=== PATIENT | male | born 1950 ===

== ENCOUNTER 2018-01-18 06:08 | Day surgery (SDC) | payer MEDICARE, MEDICAID ==
[2018-01-17 14:51] VITALS: BMI 25.6
--- NOTE | 2018-01-18 07:01 | CP.SDSHP ---
Same Day Surgery H & P - History Proposed Procedure: R foot Tenex of plantar fascia, PRP Pre-Op Diagnosis: R foot plantar fasciitis - Previous Medical/Surgical History Cardiac: Hypertension Pulmonary: Asthma Neuro: Other (Sciatica) Pain: 4.Moderate Pain (R medial calcaneus) Previous Surgical History: Appendectomy - Allergies Allergies: Allergies NAUSEA SUPPOSITORY Allergy (Severe, Uncoded 10/18/17 13:19) TWITCHING PT UNSURE OF THE NAME PHENERGAN OR COMPAZINE - Current Medications Current Medications: See chart - Physical Exam General Appearance: AAOx3, NAD Vital Signs: Vital Signs 01/18/18 01/18/18 06:45 06:51 Temperature 97.4 F L Pulse Rate 50 L 46 L Respiratory 18 Rate Blood Pressure 148/76 O2 Sat by Pulse 99 Oximetry Mental Status: Alert & Oriented x3 Neuro: WNL Heart: WNL Lungs: WNL GI: WNL - {Optional Preform as Required} Breast: WNL Abdomen: WNL Integument: WNL : WNL Ortho: Other (Pain on palpation medial calcaneal tubercle; muscle strength 5/5 for all dorsiflexors, plantarflexors, inverters, and everters) - Impression Impression: Pt was seen and examined in [facility]. Pt NPO status was confirmed. All Pre-op testing and clearance was in the chart. Pt has exhausted all conservative treatment at this time and is opting for surgical intervention. Pt was explained procedure and post-operative course. All pt's questions were answered to satisfaction. No guarantees were made. Pt understands all risks, benefits and complications of procedure. Pt will follow-up with Dr. Stacy in office Pt. Evaluated Today:Candidate for Anesthesia & Procedure: Yes - Date & Time Date: 01/18/18 Time: 07:01 Short Stay Discharge - Short Stay Discharge Admitting Diagnosis/Reason for Visit: M77.651,M72.2M79.671 Disposition: HOME/ ROUTINE Referrals: Rich Reed MD [Primary Care Provider] - Follow-up: Follow up with Dr. Stacy in office 1 week Additional Instructions (Diet, Activity): Patient in good/stable condition for discharge home. Pt to resume medications per medical reconciliation. Resume regular diet. Please keep dressing clean, dry, & intact to surgical site, use plastic bag over bandage for showering, wear post op shoe at all times when ambulating, call clinic if you see signs of infection (redness, swelling, malodor), please make an appointment to see Dr. Stacy in office within 1 week for post-op check. Progress Note/Discharge Note with Instructions: Patient in good/stable condition for discharge home. Pt to resume medications per medical reconciliation. Resume regular diet. Please keep dressing clean, dry, & intact to surgical site, use plastic bag over bandage for showering, wear post op shoe at all times when ambulating, call clinic if you see signs of infection (redness, swelling, malodor), please make an appointment to see Dr. Stacy in office within 1 week for post-op check.
--- NOTE | 2018-01-18 07:04 | CP.PCM.PN ---
Subjective - Date & Time of Evaluation Date of Evaluation: 01/18/18 Time of Evaluation: 07:01 - Subjective Subjective: Podiatry - Dr. Stacy 67 year old male PMHx HTN seen and evaluated in [facility] for pre-operative evaluation for right foot plantar fasciotomy with PRP. Patient states he has been having a lot of pain in both heels, right worse than left. Patient states it has affected the way he walks, and experiences pain now with ambulation and while at rest. Patient has exhausted conservative treatment and now opts for surgical intervention. NPO confirmed. Patient states he was given prescriptions for antibiotics and pain medications and given instructions on how to take them. Patient denies N/V/F/D/C/SOB/RAYMOND/dizziness. Objective - Vital Signs/Intake and Output Vital Signs (last 24 hours): Temp Pulse Resp BP Pulse Ox 97.4 F L 46 L 18 148/76 99 01/18/18 06:45 01/18/18 06:51 01/18/18 06:45 01/18/18 06:45 01/18/18 06:45 - Constitutional Appears: Well, Non-toxic, No Acute Distress - Extremities Exam Additional comments: VASC: DP and PT pulses palpable 2/4 b/l. CFT <3 seconds to all digits x10. Temperature gradient cool to cool. No edema noted. NEURO: Gross sensation intact bilaterally. DERM: No open lesions noted. Skin appears well hydrated. Nails normotrophic. ORTHO/Biomech: Patient presents with an antalgic gait and limt to the right lower extremity. Early heel off noted to right ankle. Patient has decreased ankle joint ROM, right worse than left. Ankle joint dorsiflexion to bilateral ankles is < 10 degrees with knee flexed and extended without pain or crepitus. Negative anterior drawer test. Talar tilt is increased left compared to right. Muscle strength is 5/5 for all dorsiflexors, plantarfexors, inverters, and everters without pain. STJ ROM is full B/L with 20 degrees inversion and 10 degrees eversion. RCSP is 6 degrees everted with NCSP 0 degrees. ROM is MTJ is normal without pain or crepitus. The forefoot is perpendicular to the rearfoot. First ray ROM is normal. 1st MPJ ROM is normal 65 degrees with pain or crepitus bilaterally. Pain on palpation to medial calcaneal tubercle b/l, right worse than left. Mild tenderness to palpation plantar medial arch b/l, R>L. No pain upon calcaneal squeeze b/l. Pes planus foot type. - Neurological Exam Neurological Exam: Alert, Awake, Oriented x3 - Psychiatric Exam Psychiatric exam: Normal Affect, Normal Mood Assessment and Plan - Assessment and Plan (Free Text) Assessment: 67M PMHx HTN with right foot plantar fasciitis Plan: Pt was seen and examined in [facility] Pt NPO status was confirmed All Pre-op testing and clearance was in the chart Pt has exhausted all conservative treatment at this time and is opting for surgical intervention Pt was explained procedure and post-operative course All pt's questions were answered to satisfaction No guarantees were made Pt understands all risks, benefits and complications of procedure Pt will follow-up with Dr. Stacy in office
[2018-01-18] MEDS ORDERED: ceFAZolin 2 GM in Sodium Chloride 0.9% 100 ML IVPB ONE (07:10)
[2018-01-18] MEDS ORDERED: Lidocaine 1% Inj (20ml) IJ ONE (07:10)
[2018-01-18] MEDS ORDERED: Bupivacaine 0.5% Inj(30mL) IJ ONE (07:10)
[2018-01-18] MEDS ORDERED: Sodium Chloride 0.9% 1,000 ML IV SCH (07:15)
[2018-01-18] MEDS ORDERED: Bupivacaine HCl 0.5% PF (30 ml) Inj ONE (07:36)
[2018-01-18] MEDS ORDERED: Lactated Ringer's 1,000 ML IV ONE (07:45)
[2018-01-18] MEDS ORDERED: Propofol 10 mg/ml Inj (20 ML) ONE (07:57)
[2018-01-18] MEDS ORDERED: Midazolam 2 MG/2 ML VIAL ONE (07:58)
[2018-01-18] MEDS ORDERED: ePHEDrine 50 mg/ml Inj ONE (07:58)
[2018-01-18] MEDS ORDERED: ceFAZolin IV 2 gm in Dextrose 2 GM/50 ML BAG IVPB ONE (08:15)
[2018-01-18] MEDS ORDERED: ceFAZolin IV 1 gm in Dextrose 1 GM/50 ML BAG IVPB ONE (08:19)
[2018-01-18] MEDS ORDERED: Lidocaine 2% Inj (20ml) IJ ONE (08:20)
[2018-01-18] MEDS ORDERED: Bupivacaine HCl 0.5% PF (30 ml) Inj IJ ONE (08:20)
[2018-01-18] MEDS ORDERED: Oxycodone/Acetaminophen 5/325 mg Tab PO PRN ×2 (08:50)
--- NOTE | 2018-01-18 08:50 | PCM.SURG1 ---
Surgeon's Initial Post Op Note - Surgeon's Notes Surgeon: Dr. Stacy Emergency Medical Service Coordinator: Scot Wong PGY1 Type of Anesthesia: IV Sedation, Local (20cc 1:1 mixture 2% lidocaine plain & 0.5% marcaine plain) Anesthesia Administered By: Dr. Renteria Pre-Operative Diagnosis: Right foot plantar fasciitis Operative Findings: See dictation. Materials: 3-0 nylon. Injectables: 4cc PRP Post-Operative Diagnosis: Same Operation Performed: Right foot US guided percutaneous plantar fasciotomy with injection of PRP Specimen/Specimens Removed: None Estimated Blood Loss: EBL {In ML}: 1 Blood Products Given: N/A Drains Used: No Drains Post-Op Condition: Good Date of Surgery/Procedure: 01/18/18 Time of Surgery/Procedure: 08:51
--- NOTE | 2018-01-18 08:57 | CARD ---
APPROVED REPORT EKG Measurement Heart [id number] <Conclusion> Sinus bradycardia Nonspecific intraventricular block Abnormal ECG
[2018-01-18] MEDS ORDERED: Lactated Ringer's 1,000 ML IV SCH (09:00)
[2018-01-18 10:16] VITALS: TEMP 97.6
[2018-01-18 11:16] VITALS: BP 131/64; PULSE 62; RESP 17; O2SAT 99
--- NOTE | 2018-01-22 08:30 | OP ---
PROCEDURE DATE: 01/18/2018 PREOPERATIVE DIAGNOSIS: Right foot chronic plantar fasciitis. POSTOPERATIVE DIAGNOSIS: Right foot chronic plantar fasciitis. PROCEDURE: 1. Right foot percutaneous tenotomy of plantar fascia under ultrasound guidance. 2. PRP injection. SURGEON: Anders Stacy DPM ASSISTANT PROFESSOR OF ART: Demetrius Wong DPM, PGY-1. ANESTHESIOLOGIST: John Renteria MD TYPE OF ANESTHESIA: IV sedation with local. INDICATIONS: The patient is a 67-year-old male with the above diagnosis. The patient has exhausted all conservative treatment at this time and now requires surgical intervention. The patient had signed the consent and after careful explanation of risks, benefits, complications, and alternatives for the surgical procedure, no guarantees were given nor implied. PREPARATION: The patient was brought into the operating room and placed on the operating room table in supine position. Time-out was performed for identification of the correct patient and the procedure. After induction of IV sedation, the patient received a total of 20 mL of 1:1 mixture of 2% lidocaine plain and 0.5% Marcaine plain in a local block type fashion to the right ankle and the heel. Once the local anesthesia was achieved, the right foot and ankle were then prepped and draped in normal sterile manner. No tourniquet was used during this procedure. PROCEDURE #1. Right foot percutaneous tenotomy of plantar fascia under ultrasound guidance: Attention was directed to the right medial heel was placed over the ultrasound and diagnostic ultrasound was performed. Attention was then directed to the medial aspect of the calcaneus. Venotomy was identified and the diseased thickened area was seen at the medial plantar fascia bed near the calcaneal insertion. Using #11 blade, a stab incision was created over the medial aspect of the calcaneus. The hand piece was introduced. Once the tip was located in the hypoechoic lesion, the foot depressed and the area was debrided and the tissue was excised. A total of 4 minutes and 26 seconds of ultrasonic energy was delivered. PROCEDURE #2: Injection of PRP: 30 mL of the patient's own blood was collected. The blood was then placed in Centrifuge in the back table. The Centrifuge was then turned on and the blood was spun utilizing a needle and syringe approximately 4 mL of PRP was collected in the sterile manner. Using an 18-gauge needle, the 4 mL of PRP was injected to the right medial heel. 3-0 nylon was used to suture the skin in simple suture pattern. Incision site was then cleaned with wet-to-dry gauze and a dressing was applied using Band-Aid and lastly Donald. POSTOPERATIVE CONDITION: The patient tolerated the anesthesia and procedure well and was escorted to the recovery room with vital signs stable and neurovascular status intact to the right foot. The patient will remain in partial weightbearing using crutches. The patient will be seen and followed by Dr. Stacy as an outpatient. Demetrius Wong DPM Anders Stacy DPM
== END 2018-01-18 12:00 | disposition home or self-care (01) ==
LOC: H.OPSURG 06:08
PROVIDERS: ATTEND Podiatrist
DX: M72.2 Plantar fascial fibromatosis (principal); J45.909 Unspecified asthma, uncomplicated; I10 Essential (primary) hypertension
CPT/HCPCS: 28008; 93005; 97161; G8978; G8979; G8980; J0690; J2001; J2250; J2704; J3010; J7120